=== PATIENT | male | born 1995 | race Caucasian/White ===

== ENCOUNTER 2020-09-17 22:07 | Emergency (ER) | payer SELFPAY ==
[~2020-09-17] VITALS: Ht 188 cm; Wt 142.0 kg
[2020-09-17] MEDS ORDERED: DEXAMETHASONE 4MG/ML 1ML VIAL IV ONE (22:30)
[2020-09-17] MEDS ORDERED: ACETAMINOPHEN 500MG TABLET PO ONE (22:30)
[2020-09-17 23:09] LABS: BASOPHILS % 0.2 % (0.0-2.0); EOSINOPHILS % 0.3 % (0.0-5.0); HEMATOCRIT. 23.8 % (42.0-52.0); HEMOGLOBIN. 7.8 g/dL (14.0-18.0); LYMPHOCYTES % 15.7 % (20.0-50.0); MEAN CORPUSCULAR HEMOGLOBIN 29.2 pg (28.0-32.0); MEAN CORPUSCULAR VOLUME 89.2 fL (80.0-94.0); MEAN PLATELET VOLUME 8.3 fl (7.4-10.4); MONOCYTES % 6.4 % (2.0-8.0); NEUTROPHILS % 77.4 % (40.0-76.0); PLATELET 242 x1000/uL (130-400); RED BLOOD CELL COUNT 2.67 mill/uL (4.7-6.1); RED CELL DISTRIBUTION WIDTH 13.3 % (11.6-14.6)
[2020-09-17 23:11] LABS: CHLORIDE 103 mEq/L (98-107)
[2020-09-17 23:20] LABS: CREATINE KINASE 194 IU/L (39-308)
[2020-09-17] MEDS ORDERED: ENOXAPARIN 150MG/ML SYR SUBCUT NR (23:45)
[2020-09-18 00:18] LABS: PARTIAL THROMBOPLASTIN TIME 27.4 sec (23.4-31.0); PROTHROMBIN TIME 10.3 sec (9.6-11.0)
[2020-09-18 05:28] VITALS: BP 103/51
== END 2020-09-18 09:30 | disposition left against medical advice (07) ==
LOC: ER 22:07 → CANBEDREQ 09-19 14:54
DX: U07.1 COVID-19 (principal); J12.89 Other viral pneumonia; R09.02 Hypoxemia; I10 Essential (primary) hypertension; F41.9 Anxiety disorder, unspecified; Z86.19 Personal history of other infectious and parasitic diseases
CPT/HCPCS: 36415; 71045; 80053; 82550; 82728; 83605; 83615; 83880; 84145; 85025; 85379; 85610; 85730; 87040; 87804; 93005; 96374; 99285; C9803; J1100; U0003; J1650